=== PATIENT | female | born 1990 | race African-American/Black ===

== ENCOUNTER 2016-09-25 13:21 | Observation (INO) | payer OTHER ==
[~2016-09-25] VITALS: Ht 162.6 cm; Wt 60.2 kg
[~2016-09-25 13:21] MED LIST: REGL5TAB PO; ZOFR4TAB3 SL
[2016-09-25 14:01] VITALS: BP 141/84; PULSE 76; RESP 16; TEMP 97.8; O2SAT 100
[2016-09-25 15:10] VITALS: BP 134/75; PULSE 73; RESP 18; O2SAT 100
[2016-09-25] MEDS ORDERED: SODIUM CHLOR 0.9% 1000 ML INJ 1,000 ML IV SCH (15:15)
[2016-09-25] MEDS ORDERED: SODIUM CHLOR 0.9% 1000 ML INJ 1,000 ML IV ONE (15:15)
[2016-09-25] MEDS ORDERED: MORPHINE SULFATE 4 MG/ML INJ IV PUSH ONE (15:15)
[2016-09-25] MEDS ORDERED: ONDANSETRON HCL 4 MG/2 ML VIAL IVP ONE (15:15)
[2016-09-25 15:28] LABS: AUTOMATED NEUTROPHIL # 5.8 TH/MM3 (1.8-7.7); BASOPHIL # 0.1 TH/MM3 (0-0.2); BASOPHIL % 1.7 % (0.0-2.0); EOSINOPHIL % 0.1 % (0.0-4.0); HEMATOCRIT 35.7 % (35.0-46.0); HEMO FLAGS DIFF FINAL; LYMPH % 9.2 % (9.0-44.0); LYMPHOCYTE # 0.6 TH/MM3 (1.0-4.8); MEAN CELL VOLUME 89.5 FL (80.0-100.0); MEAN CORPUSCULAR HEMOGLOBIN 28.9 PG (27.0-34.0); MEAN CORPUSCULAR HGB CONC 32.3 % (32.0-36.0); MONO % 2.4 % (0.0-8.0); NEUT % 86.6 % (16.0-70.0); PLATELET COUNT 309 TH/MM3 (150-450); RED BLOOD COUNT 3.99 MIL/MM3 (4.00-5.30); RED CELL DISTRIBUTION WIDTH 12.5 % (11.6-17.2); WHITE BLOOD COUNT 6.7 TH/MM3 (4.0-11.0)
--- NOTE | 2016-09-25 15:32 | PD ---
HPI Chief Complaint: Abdominal Pain Time Seen by Provider: 15:07 Travel History International Travel<30 days: No Contact w/Intl Traveler<30days: No Traveled to known affect area: No History of Present Illness HPI Patient is a 26-year-old female with hx of gastroparesis, who presents to emergency room with complaints of nausea vomiting for the past 2-3 days. Patient reports that she has had gastroparesis ever since to her cholecystectomy 6 years ago. Patient reports that she has not been able to keep any food or fluids for the past 3 days. Reports diffuse abdominal pain, reports pain similar to her normal gastroparesis flareups. Patient reports that she was seen at [facility] 3 months ago and had a CAT scan at that time - reports that the CAT scan was negative at that time. Denies fever/chills. Denies sick contacts. Denies dysuria/urgency/freq. PFSH Past Medical History Medical History: Denies Significant Hx Asthma: Yes Diminished Hearing: No Gastrointestinal Disorders: Yes (Chronic N/V, abdominal pain ) Respiratory: Yes (ASTHMA) Immunizations Current: Yes Tetanus Vaccination: > 5 Years Influenza Vaccination: No ?: Not LMP: Now : 0 Past Surgical History Body Medical Devices: TONGUE PIERCING Cholecystectomy: Yes (2014) Other Surgery: No Family History Family History: Negative Social History Alcohol Use: Yes (Socially) Tobacco Use: Yes (1 pack per week) Substance Use: Yes (Marijuana daily) Allergies-Medications (Allergen,Severity, Reaction): Coded Allergies: No Known Allergies (Unverified , 09/25/16) Reported Meds & Prescriptions Reported Meds & Active Scripts Active No Active Prescriptions or Reported Medications Review of Systems General / Constitutional: No: Fever Eyes: No: Visual changes HENT: No: Headaches Cardiovascular: No: Chest Pain or Discomfort Respiratory: No: Shortness of Breath Gastrointestinal: Positive: Nausea, Vomiting, Abdominal Pain Genitourinary: No: Dysuria Musculoskeletal: No: Pain Skin: No Rash Neurologic: No: Weakness Psychiatric: No: Depression Endocrine: No: Polydipsia Hematologic/Lymphatic: No: Easy Bruising Physical Exam Narrative GENERAL: mild distress SKIN: Warm and dry. HEAD: Atraumatic. Normocephalic. ENT: No nasal bleeding or discharge. Mucous membranes pink and moist. NECK: Trachea midline. No JVD. CARDIOVASCULAR: Regular rate and rhythm. No murmur appreciated. RESPIRATORY: No accessory muscle use. Clear to auscultation. Breath sounds equal bilaterally. GASTROINTESTINAL: Abdomen soft, diffusely tender, nondistended, pt guarding on exam, pt overall uncomfortable MUSCULOSKELETAL: No obvious deformities. No clubbing. No cyanosis. No edema. NEUROLOGICAL: Awake and alert. No obvious cranial nerve deficits. Motor grossly within normal limits. Normal speech. PSYCHIATRIC: Appropriate mood and affect; insight and judgment normal. Data Data Last Documented VS Vital Signs Date Time Temp Pulse Resp B/P Pulse Ox O2 Delivery O2 Flow Rate FiO2 09/25/16 15:10 73 18 134/75 100 Room Air 09/25/16 14:01 97.8 Orders Urinalysis - C+S If Indicated (09/25/16 13:29) Ed Urine Pregnancytest Poc (09/25/16 13:29) Complete Blood Count With Diff (09/25/16 15:15) Comprehensive Metabolic Panel (09/25/16 15:15) Lipase (09/25/16 15:15) Iv Access Insert/Monitor (09/25/16 15:15) Morphine Inj (Morphine Inj) (09/25/16 15:15) Ondansetron Inj (Zofran Inj) (09/25/16 15:15) Sodium Chlor 0.9% 1000 Ml Inj (Ns 1000 M (09/25/16 15:15) Sodium Chloride 0.9% Flush (Ns Flush) (09/25/16 15:15) Sodium Chlor 0.9% 1000 Ml Inj (Ns 1000 M (09/25/16 15:15) Labs Laboratory Tests Test 09/25/16 15:20 White Blood Count 6.7 TH/MM3 Red Blood Count 3.99 MIL/MM3 Hemoglobin 11.5 GM/DL Hematocrit 35.7 % Mean Corpuscular Volume 89.5 FL Mean Corpuscular Hemoglobin 28.9 PG Mean Corpuscular Hemoglobin 32.3 % Concent Red Cell Distribution Width 12.5 % Platelet Count 309 TH/MM3 Mean Platelet Volume 7.4 FL Neutrophils (%) (Auto) 86.6 % Lymphocytes (%) (Auto) 9.2 % Monocytes (%) (Auto) 2.4 % Eosinophils (%) (Auto) 0.1 % Basophils (%) (Auto) 1.7 % Neutrophils # (Auto) 5.8 TH/MM3 Lymphocytes # (Auto) 0.6 TH/MM3 Monocytes # (Auto) 0.2 TH/MM3 Eosinophils # (Auto) 0.0 TH/MM3 Basophils # (Auto) 0.1 TH/MM3 CBC Comment DIFF FINAL Differential Comment Sodium Level 141 MEQ/L Potassium Level 3.4 MEQ/L Chloride Level 108 MEQ/L Carbon Dioxide Level 19.9 MEQ/L Anion Gap 13 MEQ/L Blood Urea Nitrogen 12 MG/DL Creatinine 0.85 MG/DL Estimat Glomerular Filtration 99 ML/MIN Rate Random Glucose 174 MG/DL Calcium Level 9.5 MG/DL Total Bilirubin 0.5 MG/DL Aspartate Amino Transf 12 U/L (AST/SGOT) Alanine Aminotransferase 19 U/L (ALT/SGPT) Alkaline Phosphatase 57 U/L Total Protein 7.8 GM/DL Albumin 4.0 GM/DL Lipase 55 U/L MDM Medical Decision Making Medical Screen Exam Complete: Yes Emergency Medical Condition: Yes Interpretation(s) Vital Signs Date Time Temp Pulse Resp B/P Pulse Ox O2 Delivery O2 Flow Rate FiO2 09/25/16 15:10 73 18 134/75 100 Room Air 09/25/16 14:01 97.8 76 16 141/84 100 Differential Diagnosis Gastroparesis, pancreatitis, gastritis, hepatitis, viral syndrome, electrolyte abnormality, narcotic withdrawal Narrative Course 26 year old female who presents to ER with c/o of 3 days of intractable nausea and vomiting. Pt reports that she has hx of gastroparesis, reports that symptoms have been ongoing for the past 6 years. IV placed. IVF as well as zofran and morphine ordered for symptomatic relief Plan to perform serial normal exams, patient reports that her abdominal pain feels similar to her previous episodes of gastroparesis.. plan to treat symptomatically Pt signed out to care of Dr. Hardy at shift change Scripts No Active Prescriptions or Reported Meds Susan Sands DO Sep 25, 2016 15:32
[2016-09-25 15:37] LABS: CHLORIDE 108 MEQ/L (98-107); POTASSIUM 3.4 MEQ/L (3.5-5.1); SODIUM (NA) 141 MEQ/L (136-145)
[2016-09-25 15:40] LABS: ANION GAP 13 MEQ/L (5-15); BICARBONATE 19.9 MEQ/L (21.0-32.0)
[2016-09-25 15:41] LABS: BLOOD UREA NITROGEN 12 MG/DL (7-18)
[2016-09-25 15:43] LABS: ALT (GPT) 19 U/L (10-53); AST (GOT) 12 U/L (15-37)
[2016-09-25 15:44] LABS: GLOMERULAR FILTRATION RATE 99 ML/MIN (>89)
[2016-09-25 15:45] LABS: TOTAL BILIRUBIN ADULT 0.5 MG/DL (0.2-1.0)
[2016-09-25 15:46] LABS: ALKALINE PHOSPHATASE 57 U/L (45-117)
[2016-09-25] MEDS ORDERED: METOCLOPRAMIDE HCL 10 MG/2 ML VIAL IV PUSH ONE (17:30)
[2016-09-25] MEDS ORDERED: diphenhydrAMINE HCL 50 MG/ML VIAL IV PUSH ONE (17:30)
--- NOTE | 2016-09-25 17:31 | PD ---
Data Data Last Documented VS Vital Signs Date Time Temp Pulse Resp B/P Pulse Ox O2 Delivery O2 Flow Rate FiO2 09/25/16 17:45 95 18 133/83 98 Room Air 09/25/16 14:01 97.8 Orders Urinalysis - C+S If Indicated (09/25/16 13:29) Ed Urine Pregnancytest Poc (09/25/16 13:29) Complete Blood Count With Diff (09/25/16 15:15) Comprehensive Metabolic Panel (09/25/16 15:15) Lipase (09/25/16 15:15) Iv Access Insert/Monitor (09/25/16 15:15) Morphine Inj (Morphine Inj) (09/25/16 15:15) Ondansetron Inj (Zofran Inj) (09/25/16 15:15) Sodium Chlor 0.9% 1000 Ml Inj (Ns 1000 M (09/25/16 15:15) Sodium Chloride 0.9% Flush (Ns Flush) (09/25/16 15:15) Sodium Chlor 0.9% 1000 Ml Inj (Ns 1000 M (09/25/16 15:15) Metoclopramide Inj (Reglan Inj) (09/25/16 17:30) Diphenhydramine Inj (Benadryl Inj) (09/25/16 17:30) Lorazepam Inj (Ativan Inj) (09/25/16 18:15) Admit Order (Ed Use Only) (09/25/16 ) Labs Laboratory Tests Test 09/25/16 15:20 White Blood Count 6.7 TH/MM3 Red Blood Count 3.99 MIL/MM3 Hemoglobin 11.5 GM/DL Hematocrit 35.7 % Mean Corpuscular Volume 89.5 FL Mean Corpuscular Hemoglobin 28.9 PG Mean Corpuscular Hemoglobin 32.3 % Concent Red Cell Distribution Width 12.5 % Platelet Count 309 TH/MM3 Mean Platelet Volume 7.4 FL Neutrophils (%) (Auto) 86.6 % Lymphocytes (%) (Auto) 9.2 % Monocytes (%) (Auto) 2.4 % Eosinophils (%) (Auto) 0.1 % Basophils (%) (Auto) 1.7 % Neutrophils # (Auto) 5.8 TH/MM3 Lymphocytes # (Auto) 0.6 TH/MM3 Monocytes # (Auto) 0.2 TH/MM3 Eosinophils # (Auto) 0.0 TH/MM3 Basophils # (Auto) 0.1 TH/MM3 CBC Comment DIFF FINAL Differential Comment Sodium Level 141 MEQ/L Potassium Level 3.4 MEQ/L Chloride Level 108 MEQ/L Carbon Dioxide Level 19.9 MEQ/L Anion Gap 13 MEQ/L Blood Urea Nitrogen 12 MG/DL Creatinine 0.85 MG/DL Estimat Glomerular Filtration 99 ML/MIN Rate Random Glucose 174 MG/DL Calcium Level 9.5 MG/DL Total Bilirubin 0.5 MG/DL Aspartate Amino Transf 12 U/L (AST/SGOT) Alanine Aminotransferase 19 U/L (ALT/SGPT) Alkaline Phosphatase 57 U/L Total Protein 7.8 GM/DL Albumin 4.0 GM/DL Lipase 55 U/L [facility] Supervised Visit with CATIE: No Narrative Course Patient care assumed from Dr. Sands at 1600, patient has history of gastroparesis after a cholecystectomy some years ago. 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 Per review of records she has gotten multiple doses of morphine in the emergency department before. On talking with the patient she feels uncomfortable in her chief complaint is nausea. She admits to no pain until her interjects that she is in pain. Patient states it feels just like her gastroparesis which flares once a month around her period. She does not provide a urine sample as of yet. She has had apparently refusing an x -ray. When I discussed the risks of complete obstruction versus ileus she accepts those risks and still would like to defer the x-ray. I have ordered Reglan and Benadryl for her and will continue to observe in the emergency department. Patient still fairly uncomfortable in the emergency department. I did discuss with her that morphine is contraindicated with a history of gastroparesis. I did recommend that she have an x-ray to determine if she had an ileus and she adamantly declined this stating that she never find anything wrong with her x- rays. Patient and her are here to find out what is causing her symptoms however I think it CAT scan of her abdomen would be extremely low yield especially given her history of gastroparesis. Patient fairly uncomfortable wanted to leave a AGAINST MEDICAL ADVICE, I revisited her and stated I would be happy to treat her nausea more aggressively. Dr. Sands has given her morphine 4 and Zofran 4 mg IV. I have given her doses of Reglan, Benadryl, Ativan. Patient still uncomfortable and I discussed that she consider admission to the hospital. They're in favor of this because it would like to find out what is causing all of her nausea and vomiting. I discussed with them that her admission would be for symptomatic control and that a GI consultation will be at the discretion of the admitting physician. She may ultimately need to pursue this workup as an outpatient. She verbalized understanding and agreement. Still refuses x-ray. Diagnosis Primary Impression: Intractable nausea and vomiting Qualified Code: R11.2 - Intractable vomiting with nausea, unspecified vomiting type Admitting Information Admitting Physician Requests: Observation Scripts No Active Prescriptions or Reported Meds Condition: Stable Heath Hardy MD Sep 25, 2016 17:31
[2016-09-25 17:45] VITALS: BP 133/83; PULSE 95; RESP 18; O2SAT 98
[2016-09-25] MEDS ORDERED: LORazepam 2 MG/ML VIAL IV PUSH ONE (18:15)
[2016-09-25] MEDS: SODIUM CHLOR 0.9% 1000 ML INJ 1,000 ML IV SCH (19:16)
[2016-09-25 19:17] VITALS: BP 136/78; PULSE 86; RESP 18; O2SAT 98
[2016-09-25 20:43] VITALS: BP 128/84; PULSE 86; RESP 18; O2SAT 98
[2016-09-25 21:22] VITALS: BP 147/99; PULSE 69; RESP 18; TEMP 98.8; O2SAT 100
[2016-09-25] MEDS: HYDROmorphone HCL PF 1 MG/ML VIAL IV PRN (23:32)
[2016-09-25] MEDS: SODIUM CHLORIDE 0.9% FLUSH 5 ML FLUSH IVF PRN ×2 (23:32→23:37)
[2016-09-25] MEDS: METOCLOPRAMIDE HCL 10 MG/2 ML VIAL IV SCH (23:36)
[2016-09-26] VITALS: BP 142/90; PULSE 67; RESP 18; TEMP 98.3; O2SAT 99
[2016-09-26] MEDS ORDERED: ONDANSETRON HCL 4 MG/2 ML VIAL IV PUSH PRN
[2016-09-26 05:04] LABS: BLOOD, URINE LARGE (NEG); GLUCOSE,URINE NEG (NEG); KETONE, URINE 40 mg/dL (NEG); NITRITE,URINE NEG (NEG)
[2016-09-26] MEDS: SODIUM CHLOR 0.9% 1000 ML INJ 1,000 ML IV SCH (05:47)
[2016-09-26] MEDS: METOCLOPRAMIDE HCL 10 MG/2 ML VIAL IV SCH (05:48)
[2016-09-26] MEDS: HYDROmorphone HCL PF 1 MG/ML VIAL IV PRN (05:48)
[2016-09-26] MEDS: SODIUM CHLORIDE 0.9% FLUSH 5 ML FLUSH IVF PRN (05:48)
[2016-09-26 06:09] LABS: MUCUS URINE MOD /lpf (OCC); URINE COLOR AMBER (YELLW/STRAW)
[2016-09-26 06:10] LABS: RBC, URINE 100-200 /hpf (0-3); SQUAMOUS EPITHELIAL CELL URINE 0-5 /hpf (0-5)
[2016-09-26 06:11] LABS: BACTERIA, URINE FEW /hpf; COMMENT (UR) CULT NOT INDICATED; CULTURE IF INDICATED CULT NOT INDICATED; WBC, URINE 0-2 /hpf (0-5)
[2016-09-26 06:28] LABS: POTASSIUM 3.4 MEQ/L (3.5-5.1)
[2016-09-26 06:42] LABS: BICARBONATE 21.8 MEQ/L (21.0-32.0)
[2016-09-26] MEDS ORDERED: NS + KCL 20 MEQ INJ 1,000 ML IV SCH (07:15)
[2016-09-26 08:00] VITALS: BP 104/62; PULSE 64; RESP 16; TEMP 98.3; O2SAT 100
--- NOTE | 2016-09-26 08:17 | HHI.HP ---
[facility] No Primary Care Physician Admission Diagnosis Intractible N/V, Hx Gastroparesis. Diagnoses: (1) Gastroparesis Diagnosis: Principal (2) Intractable nausea and vomiting Diagnosis: Principal (3) Abdominal pain Diagnosis: Principal (4) Metabolic acidosis Diagnosis: Principal (5) Hypokalemia Diagnosis: Principal Chief Complaint: Nausea vomiting Travel History International Travel<30 Days: No Contact w/Intl Traveler <30 Da: No Traveled to Known Affected Are: No History of Present Illness 26-year-old female with known history of gastroparesis, tobacco use, asthma, marijuana use who presented to hospital because of 3 day history of nausea vomiting. Patient states that this is been ongoing for last 6 years. She indicates that every time that she is on her menses she suffers with nausea, vomiting, abdominal pain. She indicates that she has nausea every morning whenever she wakes up. She states that she usually smokes marijuana at least twice daily in order to improve the nausea. The patient is on her menses at this time. She started developing the nausea, vomiting, abdominal pain with the onset of her menses. She states that she is not been able to eat or drink anything for 3 days. She came to the hospital for evaluation. Patient had workup done which did show very mild metabolic acidosis with very mild hypokalemia. ER documentation indicates that the patient was planning on sign out AGAINST MEDICAL ADVICE. ER physician discussed her case with her and convinced her to stay for further workup. Patient refusing to have any imaging studies performed because she was recently worked up 3 months ago at [facility] CAT scan. A time evaluating the patient she is lying in bed rather comfortably. She is still complaining of abdominal discomfort which is relieved with IV pain medicine. I counseled her significantly on her condition of gastroparesis, notified her that the IV pain medication can actually antagonize her condition as well as her daily marijuana use can also cause her symptoms and conditions. Review of Systems Constitutional: DENIES: Diaphoretic episodes, Fatigue, Fever, Weight gain, Weight loss, Chills, Dizziness, Change in appetite, Night Sweats Eyes: DENIES: Blurred vision, Diplopia, Eye inflammation, Eye pain, Vision loss , Double Vision Ears, nose, mouth, throat: DENIES: Vertigo, Nasal discharge, Throat pain, Ear Pain, Running Nose, Sinus Pain Respiratory: DENIES: Apneas, Cough, Snoring, Wheezing, Hemoptysis, Sputum production, Shortness of breath Cardiovascular: DENIES: Chest pain, Palpitations, Syncope, Dyspnea on Exertion , Lower Extremity Edema, Orthopnea Gastrointestinal: COMPLAINS OF: Abdominal pain, Nausea, Vomiting, DENIES: Black stools, Bloody stools, Constipation, Diarrhea, Difficulty Swallowing, Anorexia Neurologic: DENIES: Abnormal gait, Headache, Localized weakness, Paresthesias, Seizures, Speech Problems, Tremor, Poor Balance Psychiatric: DENIES: Anxiety, Confusion, Mood changes, Depression Past Family Social History Past Medical History Gastroparesis Chronic tobacco use Marijuana use Asthma Past Surgical History Cholecystectomy Reported Medications No outpatient medications Allergies: Coded Allergies: No Known Allergies (Unverified , 09/25/16) Family History Previous significant heart disease on mother's side of the family, diabetes, breast cancer on father's side of the family Social History Patient is smoking at least 5 cigarettes a day since age 18. She does drink alcohol occasionally. Patient does smoke marijuana at least twice daily Physical Exam Vital Signs Vital Signs Date Time Temp Pulse Resp B/P Pulse Ox O2 Delivery O2 Flow Rate FiO2 09/26/16 00:00 98.3 67 18 142/90 99 09/25/16 21:22 98.8 69 18 147/99 100 09/25/16 21:04 86 18 98 09/25/16 20:43 86 18 128/84 98 Room Air 09/25/16 19:17 86 18 136/78 98 Room Air 09/25/16 17:45 95 18 133/83 98 Room Air 09/25/16 15:35 16 09/25/16 15:10 73 18 134/75 100 Room Air 09/25/16 14:01 97.8 76 16 141/84 100 Physical Exam GENERAL: Well-developed, well-nourished, in no acute distress. alert and orientated HEENT: Head is normocephalic without any lesions or masses noted. Facial features are symmetric. Eyes: Pupils equal round reactive to light. Extraocular muscles are intact. Conjunctivae were clear. Oropharyngeal: Pharynx without any erythema edema. Tongue is midline without deviation. Buccal mucosa is moist without any masses or lesions NECK: Supple without any masses. Trachea midline no deviation. No JVD, no bruits are appreciated CARDIAC: Regular rhythm, regular rate. S1/S2 are heard. No murmurs gallops or rubs. LUNGS: Clear to auscultation bilaterally. No wheeze, rhonchi or rales. No use of accessory muscles on inspiration or expiration. ABDOMEN: Soft, nontender. Nondistended. Bowel sounds heard in all 4 quadrants. No organomegaly or masses. Negative rebound, negative guarding EXTREMITIES: No edema, pulses are equal bilaterally. No cyanosis or clubbing NEUROLOGY: Mood and affect appear appropriate. Cranial nerves II through XII grossly intact. Muscle strength 5/5 in upper and lower extremities bilaterally. Deep tendon reflexes are 2+ in upper and lower extremities bilaterally. Laboratory Laboratory Tests Test 09/25/16 09/26/16 09/26/16 15:20 04:20 05:15 White Blood Count 6.7 Red Blood Count 3.99 Hemoglobin 11.5 Hematocrit 35.7 Mean Corpuscular Volume 89.5 Mean Corpuscular Hemoglobin 28.9 Mean Corpuscular Hemoglobin 32.3 Concent Red Cell Distribution Width 12.5 Platelet Count 309 Mean Platelet Volume 7.4 Neutrophils (%) (Auto) 86.6 Lymphocytes (%) (Auto) 9.2 Monocytes (%) (Auto) 2.4 Eosinophils (%) (Auto) 0.1 Basophils (%) (Auto) 1.7 Neutrophils # (Auto) 5.8 Lymphocytes # (Auto) 0.6 Monocytes # (Auto) 0.2 Eosinophils # (Auto) 0.0 Basophils # (Auto) 0.1 CBC Comment DIFF FINAL Differential Comment Sodium Level 141 140 Potassium Level 3.4 3.4 Chloride Level 108 107 Carbon Dioxide Level 19.9 21.8 Anion Gap 13 11 Blood Urea Nitrogen 12 8 Creatinine 0.85 0.58 Estimat Glomerular Filtration 99 155 Rate Random Glucose 174 102 Calcium Level 9.5 8.5 Total Bilirubin 0.5 Aspartate Amino Transf 12 (AST/SGOT) Alanine Aminotransferase 19 (ALT/SGPT) Alkaline Phosphatase 57 Total Protein 7.8 Albumin 4.0 Lipase 55 Urine Color GILL Urine Turbidity SLIGHT Urine pH 6.0 Urine Specific [place] 1.023 Urine Protein 30 Urine Glucose (UA) NEG Urine Ketones 40 Urine Occult Blood LARGE Urine Nitrite NEG Urine Bilirubin NEG Urine Leukocyte Esterase NEG Urine RBC 100-200 Urine WBC 0-2 Urine Squamous Epithelial 0-5 Cells Urine Amorphous Sediment SMALL Urine Bacteria FEW Urine Mucus MOD Microscopic Urinalysis Comment CULT NOT INDICATED Result Diagram: 09/25/16 1520 09/26/16 0515 Assessment and Plan Assessment and Plan Acute exacerbation on chronic gastroparesis Multiple etiologies exist to include no outpatient follow-up or management, marijuana use, alcohol use Previous gastric imaging study in 2010 does indicate delayed gastric emptying with minimal response to Reglan Patient counseled on cessation of marijuana use Continue IV fluids, antiemetics, pain control: We'll adjust pain medication to by mouth meds, avoid Dilaudid due to gastroparesis Start clear liquid diet Patient was counseled on close follow-up with her primary medical doctor for possible detention worker referral for appropriate outpatient management to reduce ER visits and hospitalizations Metabolic acidosis, mild: Resolved Likely related to nausea vomiting Continue follow BMP Hypokalemia Change IV fluids to NSKCl Continue monitoring place as needed Chronic marijuana use Patient counseled on cessation DVT prevention Low risk, early ambulation Written by Robbie Constantino PA-C, acting as scribe for Dr. Michaud on 09/26/16 at 1100. The documentation accurately reflects the work and decisions performed face-to- face by Dr. Michaud on 09/26/16 at 1100. Discharge disposition Discharge home in stable condition if tolerates diet Diet: Advance as tolerated to regular diet Activity: Ad oleg. Medications per medication reconciliation Follow-up with primary medical doctor in one week Problem Qualifiers (1) Intractable nausea and vomiting: Qualified Code: R11.2 - Intractable vomiting with nausea, unspecified vomiting type Robbie Constantino Sep 26, 2016 08:17
[2016-09-26] MEDS ORDERED: oxyCODONE/ACETAMINOPHEN 5 MG/325 MG TAB PO PRN (08:30)
[2016-09-26] MEDS ORDERED: REGL5TAB PO (12:13)
== END 2016-09-26 13:05 | disposition home or self-care (01) ==
LOC: PHED 13:21 → PHEDA 18:18 → PH3A 20:55
PROVIDERS: ADMIT Family Medicine; ATTEND Family Medicine
DX: R11.2 Nausea with vomiting, unspecified (principal); K31.84 Gastroparesis; R10.84 Generalized abdominal pain; F12.90 Cannabis use, unspecified, uncomplicated; F17.210 Nicotine dependence, cigarettes, uncomplicated; E87.2 Acidosis; E87.6 Hypokalemia
CPT/HCPCS: 80048; 80053; 81001; 83690; 85025; 96361; 96374; 96375; 99284; G0378; J1170; J1200; J2060; J2270; J2405; J2765; J7030

== ENCOUNTER 2016-12-23 09:40 | Emergency (ER) | payer OTHER ==
[~2016-12-23] VITALS: Ht 162.6 cm; Wt 56.0 kg
[~2016-12-23 09:40] MED LIST changes: -ZOFR4TAB3 SL
[2016-12-23 09:50] VITALS: BP 151/104; PULSE 70; RESP 18; TEMP 98.9; O2SAT 100
[2016-12-23] MEDS ORDERED: ZOFR4TAB3 SL (10:12)
[2016-12-23] MEDS ORDERED: HYDR-3533 PO (10:12)
--- NOTE | 2016-12-23 10:58 | PD ---
HPI Chief Complaint: GI Complaint Time Seen by Provider: 10:48 Travel History International Travel<30 days: No Contact w/Intl Traveler<30days: No Traveled to known affect area: No History of Present Illness HPI 26-year-old female is complaining of vomiting. She has been diagnosed with gastroparesis in the past. she was released from [facility] yesterday with prescriptions for Lortab and Zofran. He has a history of sickle cell trait. She does smoke marijuana. She describes frequent hot showers. 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 PFSH Past Medical History Asthma: Yes Cancer: No Cardiovascular Problems: No COPD: No Diminished Hearing: No Endocrine: No Gastrointestinal Disorders: Yes (Chronic N/V, abdominal pain, GASTROPERESIS) GERD: No Genitourinary: No Hiatal Hernia: No Immune Disorder: No Medical other: Yes (SICKLE CELL TRAIT) Musculoskeletal: No Neurologic: No Psychiatric: No Reproductive: No Respiratory: Yes (ASTHMA) Immunizations Current: Yes Sleep Apnea: No Ulcer: No Tetanus Vaccination: > 5 Years Influenza Vaccination: No ?: Not LMP: 1 WEEK AGO : 0 Past Surgical History Abdominal Surgery: Yes (GALL BLADDER REMOVED.) Body Medical Devices: TONGUE PIERCING Cardiac Surgery: No Cholecystectomy: Yes (2014) Ear Surgery: No Endocrine Surgery: No Eye Surgery: No Genitourinary Surgery: No Gynecologic Surgery: No Oral Surgery: No Thoracic Surgery: No Other Surgery: No Social History Alcohol Use: Yes (Socially) Tobacco Use: Yes (1 pack per week) Substance Use: Yes (Marijuana daily) Allergies-Medications (Allergen,Severity, Reaction): Coded Allergies: No Known Allergies (Unverified , 12/23/16) Reported Meds & Prescriptions Reported Meds & Active Scripts Active Reported Lortab (Hydrocodone-Acetaminophen) 5-325 Mg Tab 1 Tab PO Q4H PRN Zofran Odt (Ondansetron Odt) 4 Mg Tab 4 Mg SL Q6HR PRN Review of Systems General / Constitutional: No: Fever, Chills Eyes: No: Diploplia, Blurred Vision HENT: No: Headaches Cardiovascular: No: Chest Pain or Discomfort Respiratory: No: Cough, Shortness of Breath Gastrointestinal: Positive: Nausea, Vomiting, Abdominal Pain Genitourinary: No: Urgency, Frequency Skin: No Rash, No Itching Neurologic: No: Weakness, Dizziness Endocrine: No: Heat Intolerance, Cold Intolerance Hematologic/Lymphatic: No: Easy Bruising Physical Exam Narrative GENERAL: Well-developed female. She is vomiting SKIN: Focused skin assessment warm/dry. HEAD: Atraumatic. Normocephalic. EYES: Pupils equal and round. No scleral icterus. No injection or drainage. ENT: No nasal bleeding or discharge. Mucous membranes pink and moist. NECK: Trachea midline. No JVD. CARDIOVASCULAR: Regular rate and rhythm. No murmur appreciated. RESPIRATORY: No accessory muscle use. Clear to auscultation. Breath sounds equal bilaterally. GASTROINTESTINAL: Abdomen soft, non-tender, nondistended. Hepatic and splenic margins not palpable. MUSCULOSKELETAL: No obvious deformities. No clubbing. No cyanosis. No edema. NEUROLOGICAL: Awake and alert. No obvious cranial nerve deficits. Motor grossly within normal limits. Normal speech. PSYCHIATRIC: Appropriate mood and affect; insight and judgment normal. Data Data Last Documented VS Vital Signs Date Time Temp Pulse Resp B/P Pulse Ox O2 Delivery O2 Flow Rate FiO2 12/23/16 12:01 86 16 144/99 98 Room Air 12/23/16 09:50 98.9 Orders Ondansetron Inj (Zofran Inj) (12/23/16 11:00) Prochlorperazine Inj (Compazine Inj) (12/23/16 11:00) Sodium Chlor 0.9% 1000 Ml Inj (Ns 1000 M (12/23/16 11:00) Sodium Chlor 0.9% 1000 Ml Inj (Ns 1000 M (12/23/16 11:00) Diphenhydramine Inj (Benadryl Inj) (12/23/16 11:00) Complete Blood Count With Diff (12/23/16 11:07) Comprehensive Metabolic Panel (12/23/16 11:07) Lipase (12/23/16 11:07) Lorazepam Inj (Ativan Inj) (12/23/16 12:00) Labs Laboratory Tests Test 12/23/16 11:10 White Blood Count 5.1 TH/MM3 Red Blood Count 4.22 MIL/MM3 Hemoglobin 12.3 GM/DL Hematocrit 37.8 % Mean Corpuscular Volume 89.6 FL Mean Corpuscular Hemoglobin 29.0 PG Mean Corpuscular Hemoglobin 32.4 % Concent Red Cell Distribution Width 12.4 % Platelet Count 257 TH/MM3 Mean Platelet Volume 8.1 FL Neutrophils (%) (Auto) 85.8 % Lymphocytes (%) (Auto) 8.6 % Monocytes (%) (Auto) 4.4 % Eosinophils (%) (Auto) 0.1 % Basophils (%) (Auto) 1.1 % Neutrophils # (Auto) 4.4 TH/MM3 Lymphocytes # (Auto) 0.4 TH/MM3 Monocytes # (Auto) 0.2 TH/MM3 Eosinophils # (Auto) 0.0 TH/MM3 Basophils # (Auto) 0.1 TH/MM3 CBC Comment DIFF FINAL Differential Comment Sodium Level 140 MEQ/L Potassium Level 3.5 MEQ/L Chloride Level 103 MEQ/L Carbon Dioxide Level 24.2 MEQ/L Anion Gap 13 MEQ/L Blood Urea Nitrogen 10 MG/DL Creatinine 0.82 MG/DL Estimat Glomerular Filtration 104 ML/MIN Rate Random Glucose 113 MG/DL Calcium Level 9.9 MG/DL Total Bilirubin 0.6 MG/DL Aspartate Amino Transf 20 U/L (AST/SGOT) Alanine Aminotransferase 30 U/L (ALT/SGPT) Alkaline Phosphatase 64 U/L Total Protein 8.5 GM/DL Albumin 4.3 GM/DL Lipase 61 U/L [facility] [place] Medical Decision Making Medical Screen Exam Complete: Yes Emergency Medical Condition: Yes Medical Record Reviewed: Yes Differential Diagnosis Differential includes gastroparesis, cyclic vomiting Narrative Course Patient has been given IV fluids. Lab work is unremarkable. I have discussed with cyclical vomiting and recommended she try to stop smoking marijuana. She is stable for discharge. After Zofran and Compazine she was complaining of some residual nausea and given Ativan for its antiemetic effect Diagnosis Primary Impression: Acute vomiting Additional Instructions: Take Zofran as needed Disposition: 01 DISCHARGE HOME Condition: Stable Darian Shen MD Dec 23, 2016 10:58
[2016-12-23] MEDS ORDERED: PROCHLORPERAZINE INJ 10 MG/2 ML VIAL IV PUSH ONE (11:00)
[2016-12-23] MEDS ORDERED: diphenhydrAMINE HCL 50 MG/ML VIAL IV PUSH ONE (11:00)
[2016-12-23] MEDS ORDERED: SODIUM CHLOR 0.9% 1000 ML INJ 1,000 ML IV ONE ×2 (11:00)
[2016-12-23] MEDS ORDERED: ONDANSETRON HCL 4 MG/2 ML VIAL IV PUSH ONE (11:00)
[2016-12-23 11:16] LABS: AUTOMATED NEUTROPHIL # 4.4 TH/MM3 (1.8-7.7); BASOPHIL # 0.1 TH/MM3 (0-0.2); BASOPHIL % 1.1 % (0.0-2.0); EOSINOPHIL % 0.1 % (0.0-4.0); HEMATOCRIT 37.8 % (35.0-46.0); LYMPH % 8.6 % (9.0-44.0); LYMPHOCYTE # 0.4 TH/MM3 (1.0-4.8); MEAN CELL VOLUME 89.6 FL (80.0-100.0); MEAN CORPUSCULAR HGB CONC 32.4 % (32.0-36.0); MONO % 4.4 % (0.0-8.0); NEUT % 85.8 % (16.0-70.0); PLATELET COUNT 257 TH/MM3 (150-450); RED BLOOD COUNT 4.22 MIL/MM3 (4.00-5.30); RED CELL DISTRIBUTION WIDTH 12.4 % (11.6-17.2); WHITE BLOOD COUNT 5.1 TH/MM3 (4.0-11.0)
[2016-12-23 11:25] LABS: CHLORIDE 103 MEQ/L (98-107); POTASSIUM 3.5 MEQ/L (3.5-5.1); SODIUM (NA) 140 MEQ/L (136-145)
[2016-12-23 11:29] LABS: ANION GAP 13 MEQ/L (5-15); BICARBONATE 24.2 MEQ/L (21.0-32.0); BLOOD UREA NITROGEN 10 MG/DL (7-18); HEMO FLAGS DIFF FINAL
[2016-12-23 11:32] LABS: ALT (GPT) 30 U/L (10-53); AST (GOT) 20 U/L (15-37); GLOMERULAR FILTRATION RATE 104 ML/MIN (>89)
[2016-12-23 11:34] LABS: TOTAL BILIRUBIN ADULT 0.6 MG/DL (0.2-1.0)
[2016-12-23 11:35] LABS: ALKALINE PHOSPHATASE 64 U/L (45-117)
[2016-12-23] MEDS ORDERED: LORazepam 2 MG/ML VIAL IV PUSH ONE (12:00)
[2016-12-23 12:01] VITALS: BP 144/99; PULSE 86; RESP 16; O2SAT 98
[2016-12-23 14:45] VITALS: BP 150/92; PULSE 56; RESP 16; O2SAT 100
== END 2016-12-23 14:57 | disposition home or self-care (01) ==
LOC: PHED 09:40
DX: R11.10 Vomiting, unspecified (principal); Z72.0 Tobacco use; Z87.19 Personal history of other diseases of the digestive system; Z86.2 Personal history of diseases of the blood and blood-forming organs and certain disorders involving the immune mechanism; Z87.09 Personal history of other diseases of the respiratory system
CPT/HCPCS: 80053; 83690; 85025; 96361; 96374; 96375; 99284; J0780; J1200; J2060; J2405; J7030